=== PATIENT | female | born 1980 | race African-American/Black ===

== ENCOUNTER 2020-03-11 05:02 | Day surgery (SDC) | payer BC ==
[2020-03-10 09:44] VITALS: BMI 28.8
--- NOTE | 2020-03-11 10:16 | EKG ---
Test Reason : Blood Pressure : / mmHG Vent. Rate : 041 BPM Atrial Rate : 041 BPM P-R Int : 182 ms QRS Dur : 090 ms QT Int : 448 ms P-R-T Axes : 060 005 001 degrees QTc Int : 369 ms MARKED SINUS BRADYCARDIA ABNORMAL ECG NO PREVIOUS ECGS AVAILABLE Confirmed by SHIRA CHURCHILL MD ([id number]) on 03/11/2020 10:15:52 AM Referred By: Ravindra Jones Confirmed By:SHIRA CHURCHILL MD
[2020-03-11] MEDS ORDERED: ONDANSETRON 4 MG/2 ML VIAL IVPUSH PRN (12:35)
[2020-03-11] MEDS ORDERED: PROMETHAZINE HCL 25 MG/1 ML VIAL IVPUSH PRN (12:35)
[2020-03-11] MEDS ORDERED: oxyCODONE HCL 5 MG TABLET PO PRN ×2 (12:35→14:19)
[2020-03-11] MEDS ORDERED: LACTATED RINGERS SOLUTION 1,000 ML IV SCH ×2 (12:45→14:30)
[2020-03-11] MEDS ORDERED: LIDOCAINE HCL/PF 2% SDV 5ML VIAL ONE (12:54)
[2020-03-11] MEDS ORDERED: MIDAZOLAM HCL 2 MG/2 ML SINGLE DOSE VIAL ONE (12:54)
[2020-03-11] MEDS ORDERED: PROPOFOL 20 ML ONE (12:54)
[2020-03-11] MEDS ORDERED: DEXAMETHASONE SOD PHOSPHATE 4 MG/1 ML VIAL ONE (13:21)
[2020-03-11] MEDS ORDERED: KETOROLAC TROMETHAMINE 30 MG/1 ML VIAL ONE (13:21)
[2020-03-11] MEDS ORDERED: IBUPROFEN 400 MG TABLET (FP) PO PRN (14:19)
[2020-03-11] MEDS ORDERED: ACETAMINOPHEN 325 MG TABLET (FP) PO PRN (14:19)
--- NOTE | 2020-03-11 14:25 | HP ---
Admitting History and Physical - Primary Care Physician PCP: Kevin Joneswin - Admission Chief Complaint: menorrhagia History of Present Illness: same History Source: Patient Limitations to Obtaining History: No Limitations - Past Medical History DIRECTOR OF MARKETING: No: Alzheimer's, CVA, Dementia, Migraine, Multiple Sclerosis, Peripheral Neuropathy, Parkinson's, Seizure, Syncope, TIA, Vertigo, Other Cardiovascular: No: AFIB, Aneurysm, Aortic Insufficiency, Aortic Stenosis, CAD, CHF, Deep Vein Thrombosis, HTN, Hyperlipdemia, NV, Mitral Insufficiency, Mitral Stenosis, Murmur, Pulmonary Hypertension, Other Pulmonary: No: Asthma, Bronchitis, Cancer, COPD, O2 Dependent, Pneumonia, Previously Intubated, Pulmonary Embolus, Pulmonary Fibrosis, Sleep Apnea, Other Gastrointestinal: No: Ascites, Cancer, Constipation, Crohn's Disease, Diverticulitis, Diverticulosis, Esophageal Varices, Gastritis, GERD, GI Bleed, Hemorrhoids, Hiatal Hernia, Inflamatory Bowel Disease, Irritable Bowel Disease, Pancreatitis, Peptic Ulcer Disease, Ulcerative Colitis, Other Hepatobiliary: No: Cirrhosis, Cholelithiasis, Cholecystitis, Choledocholithiasis, Hepatitis A, Hepatitis B, Hepatitis C, Other Renal/: No: Renal Failure, Renal Inusuff, BPH, Cancer, Hematuria, Hemodialys is, Neurogenic Bladder, Renal Calculi, UTI, Other Reproductive: No: Ectopic , Endometriosis, Fibroids, PID, Polycystic Ovary Syndrome, Postmenopausal, Other ...LMP: 03/07/20 ...: No Heme/Onc: No: Anemia, B12 Deficiency, Bleeding Disorder, Cancer, Current Chemotherapy, Current Radiation Therapy, Hemochromatosis, Hypercoaguable State, Myeloproliferative Synd, Sickle Cell Disease, Sickle Cell Trait, Thrombocytopenia, Other Infectious Disease: No: AIDS, C-Diff, Herpes Zoster, HIV, MRSA, STD's, Tuberculosis, VREF, Other Psych: No: Addictions, Anxiety, Bipolar, Depression, Panic, Psychosis, Schizophrenia, Other Musculoskeletal: No: Bursitis, Chronic low back pain, Hemiparesis, Hemiplegia, Osteoarthritis, Paraplegia, Other Rheumatology: No: Fibromyalgia, Gout, Lupus, Rheumatoid Arthritis, Sarcoidosis, Vasculitis, Other ENT: No: Allergic Rhinitis, Sinusitis, Other Endocrine: No: Wampum's Disease, John's Disease, Diabetes Insipidus, Diabetes Mellitus, Hyperparathyroidism, Hyperthyroidism, Hypothyroidism, Osteopenia, SIADH, Other Dermatology: No: Basal Cell, Cellulitis, Eczema, Melanoma, Psoriasis, Squamous Cell, Other - Past Surgical History Past Surgical History: No: None, AAA Repair, AICD, Amputation, Appendectomy, Arthrosocopy, AV Fistula/Graft, Bariatric Surgery, Breast Biopsy, Bypass, CABG, Carotid Endarterectomy, Cataract Removal, Cholecystectomy, Colectomy, Colonoscopy, Colostomy, Craniotomy, , Cystectomy, Hernia Repair, Hysterectomy, Ileal Conduit, Ileosotomy, Joint Replacement, Kidney Transplant, Laminectomy, Liver Transplant, Mastectomy, Nephrectomy, Oopherectomy, Orchiectomy, Permanent Pacemaker, Prostatectomy, Splenectomy, Stent, Thoracotomy, TURP, Tonsillectomy, Tubal Ligation, Upper Endoscopy, Valve Replacement, Vasectomy, Vein Stripping/Ligation - Advance Directives Advance Directives: Yes: Living Will - Smoking History Smoking history: Never smoked Have you smoked in the past 12 months: No - Alcohol/Substance Use Hx Alcohol Use: No History of Substance Use: reports: None - Social History Usual Living Arrangement: Yes: With Significant Other Do you think of yourself as: Straight/Heterosexual ADL: Independent History of Recent Travel: No Home Medications - Allergies Allergies/Adverse Reactions: Allergies Allergy/AdvReac Type Severity Reaction Status Date / Time raw vegetable Allergy Intermediate Itching Verified 03/11/20 14:15 - Home Medications Home Medications: Ambulatory Orders Biotin 1 mg PO DAILY 03/10/20 Hydrocodone/Acetaminophen [Hydrocodone-Acetamin 5-325 mg] 1 each PO PRN 03/10/20 Medical Marijuana [Medical Marijuana Oil] 03/10/20 Family Medical History Family History: Denies Review of Systems - Review of Systems Constitutional: reports: No Symptoms Eyes: reports: No Symptoms HENT: reports: No Symptoms Neck: reports: No Symptoms Cardiovascular: reports: No Symptoms Respiratory: reports: No Symptoms Gastrointestinal: reports: No Symptoms Genitourinary: reports: No Symptoms Breasts: reports: No Symptoms Reported Musculoskeletal: reports: No Symptoms Integumentary: reports: No Symptoms Neurological: reports: No Symptoms Endocrine: reports: No Symptoms Hematology/Lymphatic: reports: No Symptoms Psychiatric: reports: No Symptoms Physical Examination Vital Signs: Vital Signs Temperature 98.4 F 03/11/20 13:49 Pulse Rate 51 L 03/11/20 14:10 Respiratory Rate 15 03/11/20 14:10 Blood Pressure 124/74 03/11/20 14:10 O2 Sat by Pulse Oximetry (%) 100 03/11/20 14:10 Constitutional: Yes: Well Nourished, No Distress, Calm Eyes: Yes: WNL, Conjunctiva Clear, EOM Intact HENT: Yes: WNL, Atraumatic, Normocephalic Neck: Yes: WNL, Supple, Trachea Midline Cardiovascular: Yes: WNL, Regular Rate and Rhythm Respiratory: Yes: WNL, Regular, CTA Bilaterally Gastrointestinal: Yes: WNL, Normal Bowel Sounds ...Rectal Exam: Yes: WNL Renal/: Yes: WNL Breast(s): Yes: WNL Musculoskeletal: Yes: WNL Extremities: Yes: WNL Edema: No Integumentary: Yes: WNL Wound/Incision: Yes: Clean/Dry, Well Approximated Neurological: Yes: WNL, Alert, Oriented ...Motor Strength: WNL Psychiatric: Yes: WNL, Alert, Oriented Assessment/Plan for endometrial ablation
--- NOTE | 2020-03-11 14:26 | OP ---
Operative Note - Note: Operative Date: 03/11/20 Pre-Operative Diagnosis: menorrhagia Operation: endomotrial ablation, d and c, hysteroscopy Findings: no submucosa fibroid, only polyps Post-Operative Diagnosis: Same as Pre-op Surgeon: Ravindra Jones Anesthesia: General Specimens Removed: uterine biopsy Estimated Blood Loss (mls): 2 Operative Report Dictated: Yes
[2020-03-11 16:54] VITALS: BP 132/73; PULSE 62; TEMP 97.7
--- NOTE | 2020-03-15 10:31 | PATH ---
Surgical Pathology Report Patient Name: MONTRELL FORREST [facility]. Rec. #: [id number] /Age/Gender: 1980 (Age: 39) / F Account: [id number] Location: [facility] SURGICAL Taken: 03/11/2020 Received: 03/14/2020 Reported: 03/15/2020 Physicians: Ravindra Jones MD Specimen(s) Received ENDOMETRIAL BIOPSY Clinical History Menorrhagia Final Diagnosis ENDOMETRIAL BIOPSY: PROLIFERATIVE ENDOMETRIUM WITH CHRONIC ENDOMETRITIS. SEPARATE FRAGMENTS OF ENDOCERVICAL TISSUE WITH SQUAMOUS METAPLASIA. Electronically Signed Jyoti Shay M.D. Gross Description Received in formalin labeled "endometrial biopsy," is a 1.7 x 1.2 x 0.3 cm aggregate huerta-brown soft tissue fragments. The formalin is filtered and the specimen is entirely submitted in one cassette. /03/14/2020 [facility]/03/14/2020
--- NOTE | 2020-03-17 12:46 | OP ---
DATE OF OPERATION: 03/11/2020 PREOPERATIVE DIAGNOSIS: Menorrhagia. POSTOPERATIVE DIAGNOSIS: Menorrhagia. PROCEDURE: Endometrial ablation, dilation and curettage, and a hysteroscopy. SURGEON: Ravindra Van MD ANESTHESIA: General anesthesia. SPECIMEN: Uterine biopsy. BLOOD LOSS: About 2 mL. INDICATION: [id number] female patient, large fibroid uterus with history of menorrhagia, anemia for many years, so patient was taken to OR for endometrial ablation, D&C, and hysteroscopy. DESCRIPTION OF PROCEDURE: Patient was placed on operating table in supine position after general anesthesia was obtained, and patient was placed in lithotomy position. Heavy speculum was placed into the vagina and cervix was grasped with tenaculum anteriorly and was dilated, and the hysteroscopy scope was inserted. No submucosal fibroid was seen, just some polyp was seen. No other abnormality was seen inside uterine cavity. So D&C was performed after endometrial ablation. Endometrial ablation balloon, hot water police detective equipment was inserted into the uterus and followed the machine protocol, 13 minutes of circulation with the water was applied into the uterus. Endometrial ablation was done without any complication. Good hemostasis. Blood loss about 2 mL. Hysteroscopy scope was removed. Tolerated the procedure well and no complications. Transferred to recovery room in stable condition. RAVINDRA VAN MD [id number]
== END 2020-03-11 16:50 | disposition home or self-care (01) ==
LOC: JASU-SURG 05:02
PROVIDERS: ATTEND Obstetrics & Gynecology
PROC: 0UDB7ZX Extraction of Endometrium, Via Natural or Artificial Opening, Diagnostic (ICD-10-PCS; 2020-03-11)
PROC: 0U5B8ZZ Destruction of Endometrium, Via Natural or Artificial Opening Endoscopic (ICD-10-PCS; principal; 2020-03-11 13:00)
DX: N92.0 Excessive and frequent menstruation with regular cycle (principal); D25.9 Leiomyoma of uterus, unspecified; D64.9 Anemia, unspecified
CPT/HCPCS: 88305-TC; 93005; 93010; 94760

== ENCOUNTER 2020-12-23 04:06 | Day surgery (SDC) | payer BC ==
[2020-12-21 16:23] VITALS: BMI 27.0
[2020-12-23 07:52] LABS: INR 0.86 (0.83-1.09); PROTHROMBIN TIME (PATIENT) 10.5 SEC (9.7-13.0)
[2020-12-23 07:58] LABS: POTASSIUM 4.2 mmol/L (3.5-5.1)
[2020-12-23 08:00] LABS: ALBUMIN 3.1 g/dl (3.4-5.0)
[2020-12-23 08:03] LABS: CREATININE 0.7 mg/dL (0.55-1.3)
[2020-12-23 08:05] LABS: BILIRUBIN,TOTAL 0.2 mg/dL (0.2-1); TOT PROT 6.8 g/dl (6.4-8.2)
[2020-12-23] MEDS ORDERED: PROMETHAZINE HCL 25 MG/1 ML VIAL IVPUSH PRN (08:43)
[2020-12-23] MEDS ORDERED: ACETAMINOPHEN 325 MG TABLET (FP) PO PRN ×2 (08:43→10:06)
[2020-12-23] MEDS ORDERED: LACTATED RINGERS SOLUTION 1,000 ML IV SCH ×2 (08:45→10:15)
[2020-12-23] MEDS ORDERED: ceFAZolin SODIUM 1 GM VIAL ONE (09:14)
[2020-12-23] MEDS ORDERED: IBUPROFEN 400 MG TABLET (FP) PO PRN (10:06)
[2020-12-23 15:21] VITALS: BP 142/72; PULSE 60; TEMP 98.2
== END 2020-12-23 15:10 | disposition home or self-care (01) ==
LOC: JASU-SURG 04:06
PROVIDERS: ATTEND Obstetrics & Gynecology
PROC: 0UVC7ZZ Restriction of Cervix, Via Natural or Artificial Opening (ICD-10-PCS; principal; 2020-12-23 09:00)
DX: O34.32 Maternal care for cervical incompetence, second trimester (principal); Z3A.14 14 weeks gestation of pregnancy
CPT/HCPCS: 36415; 80053; 85610; 85730; 86850; 86900; 86901; 94760

== ENCOUNTER 2021-06-21 06:05 | Inpatient (IN) | payer BC ==
[2021-06-21 06:43] VITALS: BMI 36.9
[2021-06-21] MEDS: ELECTROLYTE-148 SOLN 1,000 ML IV SCH (07:50)
[2021-06-21] MEDS ORDERED: morphine SULFATE (PF) 1 MG/2 ML SYRINGE ONE (08:03)
[2021-06-21] MEDS ORDERED: ELECTROLYTE-148 SOLN 500 ML IV ONE (08:07)
[2021-06-21] MEDS ORDERED: CITRIC ACID/SODIUM CITRATE 30 ML UNIT-DOSE CUP PO ONE (08:07)
[2021-06-21] MEDS ORDERED: ceFAZolin SODIUM 1 GM VIAL ONE (08:28)
[2021-06-21] MEDS ORDERED: OXYTOCIN 10 UNIT/ML 10ML MDV ONE (08:28)
[2021-06-21] MEDS ORDERED: PHENYLEPHRINE HCL 10 MG/1 ML SINGLE DOSE VIAL ONE (08:28)
[2021-06-21] MEDS ORDERED: ONDANSETRON 4 MG/2 ML VIAL ONE (08:28)
[2021-06-21] MEDS ORDERED: KETOROLAC TROMETHAMINE 30 MG/1 ML VIAL ONE (08:28)
[2021-06-21] MEDS ORDERED: ePHEDrine SULFATE 50 MG/1 ML AMPULE ONE (08:52)
[2021-06-21] MEDS ORDERED: METHYLERGONOVINE MALEATE 0.2 MG/1 ML AMP IM PRN (09:12)
[2021-06-21] MEDS ORDERED: MAG HYDROX/AL HYDROX/SIMETH 30 ML UNIT-DOSE CUP PO PRN (09:15)
[2021-06-21] MEDS: OXYTOCIN 20 UNITS in 0.9% NS 20 UNIT/1,000 ML INFUS.BAG IV SCH (09:15)
[2021-06-21] MEDS ORDERED: OXYTOCIN 20 UNITS in 0.9% NS 20 UNIT/1,000 ML INFUS.BAG IV ONE (09:16)
[2021-06-21] MEDS ORDERED: ONDANSETRON 4 MG/2 ML VIAL IVPUSH PRN (09:17)
[2021-06-21] MEDS ORDERED: morphine SULFATE/PF 1 MG/2 ML (2cc Syringe - QUVA) SPIN ONE (09:17)
[2021-06-21] MEDS ORDERED: ACETAMINOPHEN 1000 MG/100 ML VIAL (NON FORMULARY) IVPB ONE (09:45)
[2021-06-21] MEDS: PRENATAL VITAMINS W/ FOLIC ACID TABLET (FP) PO SCH (10:00)
[2021-06-21] MEDS ORDERED: ACETAMINOPHEN INJECTION 100 ML IVPB ONE (10:26)
[2021-06-21] MEDS: IBUPROFEN 800 MG/8 ML IJ IVPB PRN ×2 (12:50→20:41)
[2021-06-21] MEDS ORDERED: SENNOSIDES/DOCUSATE COMBO (SENNA PLUS) TABLET (UD) PO PRN (22:00)
[2021-06-22] MEDS: IBUPROFEN 600 MG TABLET (FP) PO PRN ×3 (01:21→20:02)
[2021-06-22 07:24] LABS: BASO % 0.4 % (0-2.0); EOS % 0.9 % (0-4.5); HEMATOCRIT 27.4 % (32.4-45.2); HEMOGLOBIN 8.9 GM/dL (10.7-15.3); LYMPH % 18.1 % (8-40); MCH 25.6 pg (25.7-33.7); MCHC 32.6 g/dl (32.0-36.0); MEAN CELL VOLUME 78.5 fl (80-96); MEAN PLT VOLUME 7.8 fl (7.5-11.1); MONO % 8.5 % (3.8-10.2); NEUT % 72.1 % (42.8-82.8); PLATELET COUNT 190 10^3/uL (134-434); RBC 3.49 M/mm3 (3.60-5.2); RDW 15.2 % (11.6-15.6); WHITE BLOOD COUNT 7.5 K/mm3 (4.0-10.0)
[2021-06-22] MEDS: ACETAMINOPHEN 325 MG TABLET (FP) PO PRN ×2 (07:40→20:01)
[2021-06-22] MEDS: SIMETHICONE 80 MG TAB.CHEW (FP) PO PRN ×3 (07:41→20:02)
[2021-06-22] MEDS ORDERED: BISACODYL 10 MG SUPP.RECT RC PRN (09:12)
[2021-06-22] MEDS: PRENATAL VITAMINS W/ FOLIC ACID TABLET (FP) PO SCH (09:14)
[2021-06-22] MEDS ORDERED: DIPHTH,PERTUSS(ACELL),TET 0.5 ML DISP.SYRIN IM ONE (10:00)
[2021-06-22] MEDS: oxyCODONE HCL 5 MG TABLET PO PRN (20:02)
[2021-06-22] MEDS: OXYTOCIN 20 UNITS in 0.9% NS 20 UNIT/1,000 ML INFUS.BAG IV SCH (20:35)
[2021-06-22] MEDS: ELECTROLYTE-148 SOLN 1,000 ML IV SCH (20:35)
[2021-06-23] MEDS: ACETAMINOPHEN 325 MG TABLET (FP) PO PRN ×2 (00:13→04:33)
[2021-06-23] MEDS: SIMETHICONE 80 MG TAB.CHEW (FP) PO PRN ×3 (00:13→10:47)
[2021-06-23] MEDS: IBUPROFEN 600 MG TABLET (FP) PO PRN ×4 (00:14→17:44)
[2021-06-23] MEDS: oxyCODONE HCL 5 MG TABLET PO PRN ×3 (00:14→10:46)
[2021-06-23] MEDS: PRENATAL VITAMINS W/ FOLIC ACID TABLET (FP) PO SCH (09:40)
[2021-06-24] MEDS: oxyCODONE HCL 5 MG TABLET PO PRN ×2 (00:02→04:49)
[2021-06-24] MEDS: SIMETHICONE 80 MG TAB.CHEW (FP) PO PRN ×3 (00:02→09:36)
[2021-06-24] MEDS: IBUPROFEN 600 MG TABLET (FP) PO PRN ×2 (04:50→09:37)
[2021-06-24] MEDS: PRENATAL VITAMINS W/ FOLIC ACID TABLET (FP) PO SCH (09:37)
[2021-06-24 11:32] VITALS: BP 128/69; PULSE 64; TEMP 99.1
== END 2021-06-24 14:20 | disposition home or self-care (01) | DRG 788 ==
LOC: JLDR 06:05 → J3W 10:45
PROVIDERS: ADMIT Obstetrics & Gynecology; ATTEND Obstetrics & Gynecology
PROC: 10D00Z1 Extraction of Products of Conception, Low, Open Approach (ICD-10-PCS; principal; 2021-06-21)
DX: O34.29 Maternal care due to uterine scar from other previous surgery (principal); O34.30 Maternal care for cervical incompetence, unspecified trimester; Z3A.40 40 weeks gestation of pregnancy; Z37.0 Single live birth
CPT/HCPCS: 36415; 85025; 88307-TC; 90715; J0131

== ENCOUNTER 2023-12-25 04:28 | Day surgery (SDC) | payer BC ==
[2023-12-19 12:34] VITALS: BMI 34.0
[2023-12-25] MEDS ORDERED: PROPOFOL 20 ML ONE ×2 (07:28→07:48)
[2023-12-25] MEDS ORDERED: FENTANYL CITRATE/PF 50 MCG/ML VIAL ONE ×2 (07:28→09:05)
[2023-12-25] MEDS ORDERED: MIDAZOLAM HCL 2 MG/2 ML SINGLE DOSE VIAL ONE (07:28)
[2023-12-25] MEDS ORDERED: SEVOFLURANE 250 ML BTL ONE (07:30)
[2023-12-25] MEDS ORDERED: DEXAMETHASONE SOD PHOSPHATE 4 MG/1 ML VIAL ONE (07:34)
[2023-12-25] MEDS ORDERED: LIDOCAINE HCL/PF 2% SDV 5ML VIAL ONE (07:34)
[2023-12-25] MEDS ORDERED: ONDANSETRON 4 MG/2 ML VIAL ONE ×2 (07:34→12:04)
[2023-12-25] MEDS ORDERED: KETOROLAC TROMETHAMINE 30 MG/1 ML VIAL ONE (07:34)
[2023-12-25] MEDS ORDERED: ceFAZolin SODIUM 1 GM VIAL ONE (07:56)
[2023-12-25] MEDS: ceFAZolin SODIUM 1 GM VIAL IVPB ONE (07:56)
[2023-12-25] MEDS ORDERED: IBUPROFEN 600 MG TABLET (FP) PO PRN (08:32)
[2023-12-25] MEDS ORDERED: IBUPROFEN 800 MG/8 ML IJ IVPB PRN (08:32)
[2023-12-25] MEDS: LACTATED RINGERS SOLUTION 1,000 ML IV SCH (10:55)
[2023-12-25] MEDS ORDERED: oxyCODONE HCL 5 MG TABLET ONE (11:02)
[2023-12-25] MEDS: oxyCODONE HCL 5 MG TABLET PO PRN (11:15)
[2023-12-25 11:24] VITALS: RESP 20
[2023-12-25] MEDS: ONDANSETRON 4 MG/2 ML VIAL IVPUSH PRN (12:16)
[2023-12-25 13:04] VITALS: BP 124/73; PULSE 56; TEMP 97.3
[2023-12-25] MEDS ORDERED: oxyCODONE HCL 5 MG TABLET PO PRN (20:34)
== END 2023-12-25 12:45 | disposition home or self-care (01) ==
LOC: JASU-SURG 04:28
PROVIDERS: ATTEND Obstetrics & Gynecology
PROC: 0U5B8ZZ Destruction of Endometrium, Via Natural or Artificial Opening Endoscopic (ICD-10-PCS; principal; 2023-12-25 07:30)
DX: N92.0 Excessive and frequent menstruation with regular cycle (principal); D64.9 Anemia, unspecified
CPT/HCPCS: 81025; 88305-TC; 94760